=== PATIENT | female | born 1960 | race Caucasian/White ===

== ENCOUNTER 2024-07-11 14:43 | Emergency (ER) | payer OTHER ==
[2024-07-11] MEDS ORDERED: NA CHLORIDE 0.9% 1,000 ML ONE (15:12)
[2024-07-11 15:20] LABS: Absolute Eosinophils 0.1 K/uL (0-0.5); Absolute Monocytes 0.7 K/uL (0.1-1.3); Absolute Neutrophil 3.4 K/uL (1.8-8.0); Basophils % 0.6 % (0-1.3); Eosinophils % 1.7 % (0-4.4); Hematocrit 39.2 % (36.0-45.0); Hemoglobin 12.8 g/dL (12.0-15.0); Lymphocytes % 31.8 % (15.3-44.8); MCH 27.9 pg (27.0-35.0); MCHC 32.6 g/dL (32.0-36.0); MCV 85.5 fL (80-100); MPV 8.5 fL (7.6-11.3); Neutrophils % 54.9 % (41.7-73.7); Platelets 336 thou/uL (152-406); RBC Red Blood Cell Count 4.58 M/uL (3.86-4.86)
[2024-07-11 15:29] LABS: PT Prothrombin Time 11.3 SECONDS (9.4-12.5); Protime INR 1.01
--- NOTE | 2024-07-11 16:10 | RAD REPORT ---
EXAM DESCRIPTION: CT - Head C Spine Cap Cherrie Con - 07/11/2024 3:29 pm CLINICAL HISTORY: Head and neck injury with chest and abdominal pain status post fall TECHNIQUE: Computed axial tomography of head, neck, chest, abdomen and pelvis obtained. IV and oral contrast not requested. Coronal and sagittal reconstruction performed. All CT scans are performed using dose optimization technique as appropriate and may include automated exposure control or mA/KV adjustment according to patient size. COMPARISON: 2019 CT chest FINDINGS: Right parietal scalp hematoma An intracranial bleed is not seen. The ventricles are normal in caliber. An extra-axial fluid collection is not noted. Fluid within the sinuses/mastoids is not seen. A cervical fracture is not seen. No dislocation is noted. Loss of the normal lordosis of the cervical spine may be secondary to muscle spasm The evaluation of mediastinum, césar, vessels, solid organs and bowel are limited secondary to the lac k of contrast administration. A mediastinal hematoma is not noted. A pleural effusion is not seen. A lung contusion is not present. Enlargement of the thyroid gland. 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 The liver,spleen, pancreas, adrenals,kidneys and bladder do not demonstrate an acute traumatic injury 1.8 centimeter peripherally calcified splenic arterial aneurysm Cholelithiasis. Gallbladder wall does not appear thickened IMPRESSION: No acute intracranial abnormality is seen. A cervical fracture is not visualized. If the patient continues to have symptoms to suggest intracran ial/spinal cord pathology MRI be recommended No acute traumatic abnormality involving the chest, abdomen or pelvis 1.8 centimeter peripherally calcified splenic arterial aneurysm Thyromegaly
--- NOTE | 2024-07-11 16:32 | RAD REPORT ---
EXAM DESCRIPTION: Elenita Single View07/11/2024 3:53 pm CLINICAL HISTORY: Chest pain COMPARISON: 2018 FINDINGS: The lungs appear clear of acute infiltrate. The heart is normal size IMPRESSION: No acute abnormalities displayed
[2024-07-11 17:06] LABS: Specific Gravity 1.013 (1.005-1.030); Sqamous Epithelial <5 /HPF (None Seen); Urine Bacteria <20 /HPF (<20); Urine Bilirubin NEGATIVE (Negative); Urine Blood Negative (Negative); Urine Clarity Clear (Clear); Urine Color Light-Yellow (Yellow); Urine Culture Reflex Order NOT NEEDED; Urine Glucose NEGATIVE (Negative); Urine Ketones NEGATIVE (Negative); Urine Microscopic Reflex YN ORDER UMIC; Urine Mucus Slight /HPF (None Seen); Urine Nitrite NEGATIVE (Negative); Urine Protein NEGATIVE (Negative); Urine RBC <5 /HPF (None Seen); Urine Urobilinogen Normal (Normal); Urine WBC <5 /HPF (<5); Urine pH 7.5 (5.0-7.0)
[2024-07-11 17:24] LABS: ALT/SGPT 36 U/L (13-56); AST/SGOT 23 U/L (15-37); Albumin 3.9 g/dL (3.4-5.0); Alkaline Phosphatase 63 U/L (45-117); Anion Gap 8.6 mEq/L (5.0-15.0); BUN Blood Urea Nitrogen 15 mg/dL (7-18); Bicarbonate 27 mEq/L (21-32); Bilirubin Total 0.4 mg/dL (0.2-1.0); Glomerular Filtration Rate 63 ml/min (=/>90); Glucose Level 119 mg/dL (74-106); Lipase 26 U/L (13-75); Magnesium 2.2 mg/dL (1.6-2.4); NT PRO-BNP 177 pg/mL (<125); Potassium 3.6 mEq/L (3.5-5.1); Protein, Total 7.9 g/dL (6.4-8.2); Sodium Level 139 mEq/L (136-145)
[2024-07-11 17:25] LABS: Bilirubin Direct < 0.2 mg/dL (0-0.2); Bilirubin Indirect, Calculated 0.2 mg/dL (0.2-0.8)
--- NOTE | 2024-07-11 18:47 | ER ---
Nurse's Notes [facility] Name: Katharine Hanna Age: 63 yrs Sex: Female : 1960 Arrival Date: 07/11/2024 Time: 14:43 Bed 18 Private MD: Diagnosis: Fall on same level, unspecified;Unspecified injury of head, initial encounter-HEMATOMA;Concussion with loss of consciousness of 30 minutes or less;Postconcussional syndrome Presentation: 07/11 14:45 Chief complaint: EMS states: mechanical fall backwards, hit back of her head and lost ga1 consciousness. EMS assessing patient and she lost consciousness again for less than a minute. Patient has no recollection of any of that including the fall. hematoma to right posterior scalp. c/o OLIVAERS 04/10. vitals wnl, BGL 112. Coronavirus screen: Vaccine status: Patient reports receiving the 2nd dose of the covid vaccine. Ebola Screen: No symptoms or risks identified at this time. Initial Sepsis Screen: Does the patient meet any 2 criteria? No. Patient's initial sepsis screen is negative. Does the patient have a suspected source of infection? No. Patient's initial sepsis screen is negative. Risk Assessment: Do you want to hurt yourself or someone else? Patient reports no desire to harm self or others. Onset of symptoms was July 11, 2024. Care prior to arrival: Glucose check: 112. 14:45 Method Of Arrival: EMS: [facility] 14:45 Acuity: [place] 3 me1 19:23 Care prior to arrival: None. Mechanism of Injury: Fall fell backwards at the skating [facility] rink and hit the back of her head on the floor, LOC. Trauma event details: Injury occurred in the [facility]. Triage Assessment: 14:50 General: Appears uncomfortable, well groomed, well developed, well nourished, Behavior ga1 is calm, cooperative, appropriate for age. Pain: Complains of pain in head Pain does not radiate. Pain currently is 5 out of 10 on a pain scale. Quality of pain is described as aching, Pain began suddenly, Is continuous. EENT: No signs and/or symptoms were reported regarding the EENT system. Neuro: Level of Consciousness is awake, alert, obeys commands, Oriented to person, place, time, situation, Appropriate for age. Cardiovascular: Patient's skin is warm and dry. Respiratory: Airway is patent Trachea midline Respiratory effort is even, unlabored, Respiratory pattern is regular, symmetrical. GI: No signs and/or symptoms were reported involving the gastrointestinal system. : No signs and/or symptoms were reported regarding the genitourinary system. Derm: Skin is healthy with good turgor, Skin is pink, warm \T\ dry. Derm: hematoma to posterior scalp. Musculoskeletal: No signs and/or symptoms reported regarding the musculoskeletal system. Injury Description: mechanical fall back, hitting posterior head on wood floor. 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 - Infectious Disease History:: Denies. - Immunization history: Last tetanus immunization: - up to date. - Social history:: Smoking status: Patient denies any tobacco usage or history of. Screenin:52 [facility] ED Fall Risk Assessment (Adult) History of falling in the last 3 months, me1 including since admission Yes- single mechanical fall (1 pt) Confusion or Disorientation No (0 pts) Intoxicated or Sedated No (0 pts) Impaired Gait No (0 pts) Mobility Assist Device Used No (0 pt) Altered Elimination No (0 pt) Score/Fall Risk Level 0 - 2 = Low Risk Maintained a safe environment, Provided non-skid footwear, Hourly rounding (assess needs \T\ fall precautionary measures) done. Abuse screen: Denies threats or abuse. Nutritional screening: No deficits noted. Tuberculosis screening: No symptoms or risk factors identified. Primary Survey: 14:45 NO uncontrolled hemorrhage observed. A: The client is awake and alert. The airway is me1 patent. The client is alert. Airway: patent, No supplemental oxygen in use on arrival. Oral cavity: clear, Trachea midline. Breathing/Chest: Spontaneous respiratory effort, equal unlabored respirations, breath sounds clear bilaterally, regular pattern, symmetrical chest rise and fall. Respiratory effort: spontaneous, unlabored, Breath sounds: clear, bilaterally. Respiratory pattern: regular, Chest inspection: symmetrical rise and fall of the chest. Circulation: No external hemorrhage present. Regular and strong central pulse, skin warm/dry/normal color. Hemorrhage: No external hemorrhage noted. Pulses: palpable right radial artery, right posterior tibial artery, right dorsalis pedis artery, left radial artery, left posterior tibial artery and left dorsalis pedis artery. Skin color: pink, Skin temperature: warm, dry, Heart tones present. Disability Pupils are equal, round, reactive to light and accommodation. Client is alert. Exposure/Environment: All clothing and personal items were removed. Forensic evidence collection is not deemed to be indicated at this time. Items placed in patient belonging bag. There is no evidence of uncontrolled external bleeding. Obvious injury(ies) are noted at this time: hematoma to posterior scalp. Reassessment Alertness and Airway: Awake and alert. The airway is patent. Airway Patent Oxygen No O2 Oral cavity Clear Trachea Midline Breathing: Spontaneous respiratory effort, equal unlabored respirations, breath sounds clear bilaterally, regular pattern with symmetrical chest rise and fall. Respiratory effort Spontaneous Unlabored Breath sounds Clear Respiratory pattern Regular Chest inspection Symmetrical Circulation: No external hemorrhage noted. Regular and strong central pulse, skin warm/dry/normal color. Heart tones Present Pulses Palpable Color [place] Temperature Warm Dry Disability: Pupils Pupils are equal, round, reactive to light and accomodation. Alert. Assessment: 14:52 General: See triage assessment. . me1 Vital Signs: 14:45 BP 145 / 76; Pulse 75; Resp 16; Temp 97.8; Pulse Ox 98% ; Weight 59.87 kg; Height 5 ft. me1 1 in. ; Pain 5/10; 15:00 BP 143 / 77; Pulse 72; Resp 16; Pulse Ox 97% on R/A; me1 16:00 BP 124 / 70; Pulse 69; Resp 15; Pulse Ox 99% ; me1 17:00 BP 134 / 74; Pulse 90; Resp 15; Pulse Ox 100% ; me1 18:00 BP 129 / 73; Pulse 79; Resp 16; Pulse Ox 100% on R/A; me1 18:45 BP 125 / 68; Pulse 77; Resp 16; Pulse Ox 99% ; me1 14:45 Body Mass Index 24.94 (59.87 kg, 154.94 cm) me1 14:45 Pain Scale: Adult me1 [place] Coma Score: 14:45 Eye Response: spontaneous(4). Motor Response: obeys commands(6). Verbal Response: me1 oriented(5). Total: 15. 18:43 Eye Response: spontaneous(4). Motor Response: obeys commands(6). Verbal Response: phong oriented(5). Total: 15. Trauma Score (Adult): 14:45 Eye Response: spontaneous(1); Verbal Response: oriented(1); Motor Response: obeys [facility] commands(2); Systolic BP: > 89 mm Hg(4); Respiratory Rate: 10 to 29 per min(4); Artur Score: 15; Trauma Score: 12 ED Course: 14:44 Patient arrived in ED. me1 14:47 Oswald Mcneil MD is Attending Physician. [facility] 14:50 Triage completed. me1 14:50 Arm band placed on Patient placed in an exam room. me1 14:52 Patient has correct armband on for positive identification. Bed in low position. Call [facility] light in reach. Side rails up X2. Provided Education on: POC. Verbalized understanding. . Client placed on continuous cardiac and pulse oximetry monitoring. NIBP monitoring applied. Pulse ox on. NIBP on. 14:52 No provider procedures requiring assistance completed. me1 15:08 Nathalie Richard, RN is Primary Nurse. me1 15:08 Initial lab(s) drawn, by ga, sent to lab. Inserted saline lock: 22 gauge in right [facility] antecubital area, using aseptic technique. 15:08 Basic Metabolic Panel Sent. me1 15:08 CBC with Diff Sent. me1 15:08 LFT's Sent. me1 15:08 Magnesium Sent. me1 15:08 NT PRO-BNP Sent. me1 15:08 PT-INR Sent. me1 15:08 Troponin HS Sent. me1 15:08 Lipase Sent. me1 15:31 CT Traumagram (Head C Spine CAP wo con) In Process Unspecified. EDMS 15:55 XRAY Chest (1 view) In Process Unspecified. EDMS 16:43 Urinalysis w/ reflexes Sent. me1 16:44 Urine collected: clean catch specimen, clear, EKG done, by ED staff, reviewed by me1 Nathalie Richard RN. 18:45 Yehuda Saucedo MD is Referral Physician. [facility] 19:01 IV discontinued, intact, bleeding controlled, No redness/swelling at site. Pressure me1 dressing applied. Administered Medications: 15:24 Drug: NS 0.9% IV 500 ml IV at bolus once Route: IV; Rate: bolus; Site: right me1 antecubital; 15:24 Drug: NS 0.9% IV 1000 ml IV at 125 ml/hr continuous Route: IV; Rate: 125 ml/hr; Site: me1 right antecubital; 18:49 Drug: Acetaminophen PO 1000 mg PO once Route: PO; me1 18:51 Follow up: Response: No adverse reaction me1 Medication: 14:52 VIS not applicable for this client. me1 Outcome: 14:45 Patient's length of stay in the Emergency Department was greater than 2 hours. waiting me1 on lab resultsPatient's length of stay extended due to 18:46 Discharge ordered by . [facility] 19:00 Discharged to home ambulatory, me1 19:00 Condition: stable 19:00 Discharge instructions given to patient, family, Instructed on discharge instructions, follow up and referral plans. medication usage, Demonstrated understanding of instructions, follow-up care, medications, Prescriptions given X 1, 19:01 Patient left the ED. me1 Signatures: Dispatcher [employer] Oswald Hsieh MD MD cha Eddleman, Michelle, RN RN me1
--- NOTE | 2024-07-11 18:47 | EDPHYS ---
Physician Documentation [facility] Name: Katharine Hanna Age: 63 yrs Sex: Female : 1960 Arrival Date: 07/11/2024 Time: 14:43 Bed 18 Private MD: ED Physician Oswald Mcneil HPI: 07/11 18:40 This 63 yrs old Female presents to ER via EMS with complaints of Fall Injury, phong Head Injury With LOC-Adult. 18:40 Details of fall: The patient fell from an upright position, while rollerblading, while phong skating. Onset: The symptoms/episode began/occurred just prior to arrival. Associated injuries: The patient sustained injury to the head. Severity of symptoms: At their worst the symptoms were mild, moderate, in the emergency department the symptoms have improved, mildly. The patient has not experienced similar symptoms in the past. 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 - Infectious Disease History:: Denies. - Immunization history: Last tetanus immunization: - up to date. - Social history:: Smoking status: Patient denies any tobacco usage or history of. ROS: 18:41 Constitutional: Negative for fever, chills, and weight loss, Eyes: Negative for injury, phong pain, redness, and discharge, ENT: Negative for injury, pain, and discharge, Neck: Negative for injury, pain, and swelling, Cardiovascular: Negative for chest pain, palpitations, and edema, Respiratory: Negative for shortness of breath, cough, wheezing, and pleuritic chest pain, Abdomen/GI: Negative for abdominal pain, nausea, vomiting, diarrhea, and constipation, Back: Negative for injury and pain, : Negative for injury, bleeding, discharge, and swelling, MS/Extremity: Negative for injury and deformity, Skin: Negative for injury, rash, and discoloration, Psych: Negative for depression, anxiety, suicide ideation, homicidal ideation, and hallucinations, Allergy/Immunology: Negative for hives, rash, and allergies, Endocrine: Negative for neck swelling, polydipsia, polyuria, polyphagia, and marked weight changes, Hematologic/Lymphatic: Negative for swollen nodes, abnormal bleeding, and unusual bruising, 18:41 Neuro: Positive for headache, of the scalp, Exam: 18:41 Constitutional: This is a well developed, well nourished patient who is awake, alert, phong and in no acute distress. Eyes: Pupils equal round and reactive to light, extra-ocular motions intact. Lids and lashes normal. Conjunctiva and sclera are non-icteric and not injected. Cornea within normal limits. Periorbital areas with no swelling, redness, or edema. ENT: Nares patent. No nasal discharge, no septal abnormalities noted. Tympanic membranes are normal and external auditory canals are clear. Oropharynx with no redness, swelling, or masses, exudates, or evidence of obstruction, uvula midline. Mucous membranes moist. Neck: Trachea midline, no thyromegaly or masses palpated, and no cervical lymphadenopathy. Supple, full range of motion without nuchal rigidity, or vertebral point tenderness. No Meningismus. Chest/axilla: Normal chest wall appearance and motion. Nontender with no deformity. No lesions are appreciated. Cardiovascular: Regular rate and rhythm with a normal S1 and S2. No gallops, murmurs, or rubs. Normal PMI, no JVD. No pulse deficits. Respiratory: Lungs have equal breath sounds bilaterally, clear to auscultation and percussion. No rales, rhonchi or wheezes noted. No increased work of breathing, no retractions or nasal flaring. Abdomen/GI: Soft, non-tender, with normal bowel sounds. No distension or tympany. No guarding or rebound. No evidence of tenderness throughout. Back: No spinal tenderness. No costovertebral tenderness. Full range of motion. Skin: Warm, dry with normal turgor. Normal color with no rashes, no lesions, and no evidence of cellulitis. MS/ Extremity: Pulses equal, no cyanosis. Neurovascular intact. Full, normal range of motion. Neuro: Awake and alert, GCS 15, oriented to person, place, time, and situation. Cranial nerves II-XII grossly intact. Motor strength 5/5 in all extremities. Sensory grossly intact. Cerebellar exam normal. Normal gait. Psych: Awake, alert, with orientation to person, place and time. Behavior, mood, and affect are within normal limits. 18:41 Head/face: Noted is contusion, that is deep, of the right side of the back of head, hematoma, that is moderate, of the right side of the back of head, 18:41 Eyes: Periorbital structures: appear normal, no acute changes, Pupils: no acute changes, equal, round, and reactive to light and accomodation, Extraocular movements: intact throughout, Conjunctiva: normal, 18:41 ECG was reviewed by the Attending Physician. Vital Signs: 14:45 BP 145 / 76; Pulse 75; Resp 16; Temp 97.8; Pulse Ox 98% ; Weight 59.87 kg; Height 5 ft. me1 1 in. ; Pain 5/10; 15:00 BP 143 / 77; Pulse 72; Resp 16; Pulse Ox 97% on R/A; me1 16:00 BP 124 / 70; Pulse 69; Resp 15; Pulse Ox 99% ; me1 17:00 BP 134 / 74; Pulse 90; Resp 15; Pulse Ox 100% ; me1 18:00 BP 129 / 73; Pulse 79; Resp 16; Pulse Ox 100% on R/A; me1 18:45 BP 125 / 68; Pulse 77; Resp 16; Pulse Ox 99% ; me1 14:45 Body Mass Index 24.94 (59.87 kg, 154.94 cm) me1 14:45 Pain Scale: Adult me1 Artur Coma Score: 14:45 Eye Response: spontaneous(4). Motor Response: obeys commands(6). Verbal Response: me1 oriented(5). Total: 15. 18:43 Eye Response: spontaneous(4). Motor Response: obeys commands(6). Verbal Response: phong oriented(5). Total: 15. Trauma Score (Adult): 14:45 Eye Response: spontaneous(1); Verbal Response: oriented(1); Motor Response: obeys me1 commands(2); Systolic BP: > 89 mm Hg(4); Respiratory Rate: 10 to 29 per min(4); Artur Score: 15; Trauma Score: 12 MDM: 14:47 Patient medically screened. phong 18:43 Differential diagnosis: intracerebral hemorrhage, migraine, neoplasm, subarachnoid phong bleed, subdural hematoma, tension headache, trigeminal neuralgia, vasomotor headache. Differential diagnosis: closed head injury, contusion, fracture, laceration, multiple trauma, sprain, strain. Data reviewed: vital signs, nurses notes, lab test result(s), EKG, radiologic studies, CT scan, plain films. Consideration of Admission/Observation Escalation of care including admission/observation considered. I considered the following discharge prescriptions or medication management in the emergency department Medications were administered in the Emergency Department. See MAR. Independent interpretation of the following test(s) in the Emergency Department EKG: See my EKG interpretation above. Test considered but Not performed: MRI: NO MRI BRAIN. Care significantly affected by the following chronic conditions: SCLERODERMA. Counseling: I had a detailed discussion with the patient and/or guardian regarding the historical points, exam findings, and any diagnostic results supporting the discharge/admit diagnosis, lab results, radiology results, the need for outpatient follow up, for definitive care, a family practitioner, a neurologist. 07/11 14:48 Order name: Basic Metabolic Panel; Complete Time: 18:31 07/11 14:48 Order name: CBC with Diff; Complete Time: 17:17 07/11 14:48 Order name: LFT's; Complete Time: 18:31 07/11 14:48 Order name: Magnesium; Complete Time: 18:31 07/11 14:48 Order name: NT PRO-BNP; Complete Time: 18:31 07/11 14:48 Order name: PT-INR; Complete Time: 17:17 07/11 14:48 Order name: Troponin HS; Complete Time: 18:31 07/11 14:48 Order name: Urinalysis w/ reflexes; Complete Time: 17:17 07/11 14:49 Order name: Lipase; Complete Time: 18:31 07/11 14:48 Order name: XRAY Chest (1 view); Complete Time: 17:17 07/11 14:48 Order name: CT Traumagram (Head C Spine CAP wo con); Complete Time: 17:17 07/11 14:48 Order name: EKG; Complete Time: 14:49 07/11 14:48 Order name: Cardiac monitoring; Complete Time: 16:43 07/11 14:48 Order name: EKG - Nurse/Tech; Complete Time: 16:44 07/11 14:48 Order name: IV Saline Lock; Complete Time: 15:08 07/11 14:48 Order name: Labs collected and sent; Complete Time: 15:08 07/11 14:48 Order name: O2 Per Protocol; Complete Time: 15: [facility] 07/11 14:48 Order name: O2 Sat Monitoring; Complete Time: 15: [facility] 07/11 18:40 Order name: PO challenge; Complete Time: 18:49 [facility] 07/11 18:40 Order name: Ice pack; Complete Time: 18:49 phong EC:41 Rate is 74 beats/min. Rhythm is regular. QRS [place] is Normal. MI interval is normal. QRS phong interval is normal. QT interval is normal. No Q waves. T waves are Normal. No ST changes noted. Clinical impression: NSR w/ Non-specific ST/T Changes and No evidence of ischemia. Interpreted by me. Reviewed by me. Administered Medications: 15:24 Drug: NS 0.9% IV 500 ml IV at bolus once Route: IV; Rate: bolus; Site: right me1 antecubital; 15:24 Drug: NS 0.9% IV 1000 ml IV at 125 ml/hr continuous Route: IV; Rate: 125 ml/hr; Site: me1 right antecubital; 18:49 Drug: Acetaminophen PO 1000 mg PO once Route: PO; me1 18:51 Follow up: Response: No adverse reaction me1 Disposition Summary: 07/11/24 18:46 Discharge Ordered Notes: Location: Home phong Problem: new phong Symptoms: have improved phong Condition: Stable phong Diagnosis - Fall on same level, unspecified phong - Unspecified injury of head, initial encounter - HEMATOMA phong - Concussion with loss of consciousness of 30 minutes or less phong - Postconcussional syndrome phong Followup: phong - With: Private Physician - When: 2 - 3 days - Reason: Recheck today's complaints, Continuance of care, Re-evaluation by your physician Followup: phong - With: Yehuda Saucedo MD - When: 2 - 3 days - Reason: Recheck today's complaints, Re-evaluation by your physician Discharge Instructions: - Discharge Summary Sheet phong - Concussion, Adult phong - Head Injury, Adult phong - Post-Concussion Syndrome phong - Post-Concussion Syndrome, [id number] phong - Concussion, Adult, [id number] phong - Head Injury, Adult, [id number] phong Forms: - Medication Reconciliation Form phong - Antibiotic Education phong - Prescription Opioid Use phong - Patient Portal Instructions phong - Leadership Thank You Letter phong Prescriptions: - ondansetron 4 mg Oral Tablet,disintegrating - take 1 tablet ORAL route every 8-10 hours for 5 days; 20 tablet; Refills: 0, phong Product Selection Permitted Signatures: Dispatcher [employer] EDOswald Baeza, Nathalie Green MD, cha RN RN me1 Corrections: (The following items were deleted from the chart) 14:49 14:49 Head C Spine Cap Wo Con+CT.RAD.BRZ ordered. EDMS EDMS
[2024-07-11] MEDS ORDERED: ACETAMINOPHEN 500 MG TAB ONE (18:48)
[2024-07-11 19:11] VITALS: TEMP 97.8
[2024-07-11 19:19] VITALS: BP 125/68; O2SAT 99
--- NOTE | 2024-07-13 13:50 | EKG ---
Test Date: 2024-07-11 Test Time: 16:46:08 Personalized Living Manager: MEASUREMENT RESULTS: Intervals: Rate: 74 PA: 178 QRSD: 90 QT: 410 QTc: 455 [place]: P: 53 PA: 178 QRS: -6 T: 68 INTERPRETIVE STATEMENTS: Normal sinus rhythm Nonspecific T wave abnormality Abnormal ECG Compared to ECG 01/01/2003 07:09:00 T-wave abnormality now present Left ventricular hypertrophy no longer present Electronically Signed On 07-13-24 13:45:35 CDT by Carlos Padilla
== END 2024-07-11 19:01 | disposition home or self-care (01) ==
LOC: ER 14:43
DX: S06.0X1A Concussion with loss of consciousness of 30 minutes or less, initial encounter (principal); W18.30XA Fall on same level, unspecified, initial encounter
CPT/HCPCS: 85025; 81001; 80048; 36415; 83735; 85610; 80076; 84484; 83690; 83880; 70450; 71250; 72125; 71045; 99285; J7030; 93005